=== PATIENT | female | born 1990 | race Caucasian/White ===

== ENCOUNTER → 2017-02-26 | Outpatient (CLI) | payer BC ==
[2017-02-26 12:50] LABS: CARBON DIOXIDE 29 mEq/L (21-32); CHLORIDE 103 mEq/L (98-107); HDL CHOLESTEROL 77 mg/dL (40-59); LDL CHOLESTEROL 58 mg/dL (5-100)
== END | disposition home or self-care (01) ==
LOC: LAB 11:54
PROVIDERS: ATTEND Specialist
DX: E88.09 Other disorders of plasma-protein metabolism, not elsewhere classified (principal); F32.9 Major depressive disorder, single episode, unspecified; R79.89 Other specified abnormal findings of blood chemistry
CPT/HCPCS: 36415; 80053; 80061